=== PATIENT | male | born 1975 | race Caucasian/White ===

== ENCOUNTER 2023-02-16 09:12 | Outpatient (CLI) | payer BC, MEDICAID, SELFPAY ==
[2023-02-16 09:51] LABS: Basophils # 0.1 10^3/uL (0.0-0.1); Basophils % 0.9 %; Eosinophils # 0.3 10^3/uL (0.0-0.8); Hematocrit 43.8 % (37-53); Lymphocytes # 4.8 10^3/uL (0.8-4.8); Lymphocytes % 34.7 %; Mean Corpuscular HGB Conc 33.6 g/dL (30-55); Mean Corpuscular Hemoglobin 30.8 pg (27-33); Mean Corpuscular Volume 91.8 fl (82-101); Mean Platelet Volume 8.7 fL (7.4-10.4); Monocytes # 0.7 10^3/uL (0.2-0.9); Monocytes % 5.1 %; Neutrophils # 7.77 10^3/uL (1.8-7.7); Neutrophils % 56.8 %; Nucleated Red Blood Cells % 0 %; Platelet Count 347 10^3/cmm (157-399); Red Blood Count 4.77 10^6/uL (3.85-5.65); Red Cell Distribution Width 13.4 % (12.1-15.1); White Blood Count 13.68 10^3/uL (3.29-11.43)
[2023-02-16 09:56] LABS: Erythrocyte Sedimentation Rate 16 mm/hr (0-10)
[2023-02-16 11:03] LABS: LAB Peripheral Smear Sent for Review
== END 2023-02-16 09:13 | disposition home or self-care (01) ==
LOC: LAB 09:19
PROVIDERS: PCP Nurse Practitioner Occupational Health; Visit Provider Nurse Practitioner Occupational Health
DX: R79.9 Abnormal finding of blood chemistry, unspecified (principal)
CPT/HCPCS: 36415; 80503; 85025; 85651; 86140

== ENCOUNTER 2023-04-05 10:10 | Oncology outpatient (recurring) (ONCR) | payer BC, MEDICAID, SELFPAY ==
[2023-04-05 11:42] VITALS: BP 145/92; PULSE 87; RESP 18; TEMP 36.1; O2SAT 99
[2023-04-05 11:56] LABS: Basophils # 0.1 10^3/uL (0.0-0.1); Basophils % 0.8 %; Eosinophils # 0.1 10^3/uL (0.0-0.8); Hematocrit 45.4 % (37-53); Lymphocytes # 4.1 10^3/uL (0.8-4.8); Lymphocytes % 33.7 %; Mean Corpuscular HGB Conc 34.1 g/dL (30-55); Mean Corpuscular Hemoglobin 30.8 pg (27-33); Mean Corpuscular Volume 90.1 fl (82-101); Mean Platelet Volume 8.4 fL (7.4-10.4); Monocytes # 0.7 10^3/uL (0.2-0.9); Monocytes % 5.4 %; Neutrophils # 7.13 10^3/uL (1.8-7.7); Neutrophils % 58.8 %; Nucleated Red Blood Cells % 0 %; Platelet Count 341 10^3/cmm (157-399); Red Blood Count 5.04 10^6/uL (3.85-5.65); Red Cell Distribution Width 13.6 % (12.1-15.1); White Blood Count 12.13 10^3/uL (3.29-11.43)
[2023-04-05 12:04] LABS: Erythrocyte Sedimentation Rate 15 mm/hr (0-10); LAB Peripheral Smear Sent for Review
[2023-04-05 12:24] LABS: Alanine Aminotransferase 27 U/L (0-41); Albumin Level 4.7 g/dL (3.5-5.2); Alkaline Phosphatase 91 U/L (40-130); Anion Gap 14.8 (5-19); Aspartate Amino Transferase 19 U/L (0-40); Blood Urea Nitrogen 15 mg/dL (6-20); C Reactive Protein 3.9 mg/L (0.0-4.9); Calcium 9.4 mg/dL (8.5-10.5); Carbon Dioxide 28 mmol/L (22-29); Chloride 101 mmol/L (98-107); Globulin 3.3 g/dL (1.3-4.6); Glomerular Filtration Rate 54.6 mL/min (90-130); Glucose 90 mg/dL (65-115); Lactate Dehydrogenase 180 U/L (135-225); Osmolality Calculated 290 mOsm/kg (285-295); Potassium 3.8 mmol/L (3.5-5.1); Sodium 140 mmol/L (136-145); Total Bilirubin 0.3 mg/dL (0.15-1.2)
== END 2023-04-05 23:59 | disposition home or self-care (01) ==
PROVIDERS: PCP Nurse Practitioner Occupational Health; Visit Provider Internal Medicine Medical Oncology
DX: D72.829 Elevated white blood cell count, unspecified (principal); Z79.899 Other long term (current) drug therapy
CPT/HCPCS: 36415; 80053; 83615; 85025; 85651; 86140

== ENCOUNTER 2023-06-04 23:44 | Emergency (ER) | payer BC, MEDICAID, SELFPAY ==
[2023-06-04 23:49] VITALS: BP 139/92; PULSE 108; RESP 16; TEMP 36.6; O2SAT 93; BMI 32.8
--- NOTE | 2023-06-04 23:57 | CTR_ITS ---
PROCEDURE INFORMATION: Exam: CT Abdomen And Pelvis With Contrast Exam date and time: 06/05/2023 12:10 AM Age: 48 years old Clinical indication: Other: Tarry stool; Prior surgery; Surgery date: 6+ months; Surgery type: Gb; Additional info: Abd pain TECHNIQUE: Imaging protocol: Computed tomography of the abdomen and pelvis with contrast. Radiation optimization: All CT scans at this facility use at least one of these dose optimization techniques: automated exposure control; mA and/or kV adjustment per patient size (includes targeted exams where dose is matched to clinical indication); or iterative reconstruction. Contrast material: OMNI 350; Contrast volume: 100 ml; Contrast route: INTRAVENOUS (IV); REPORTING DATA: Count of CT and Cardiac NM exams in prior 12 months: This patient has received 0 known CTs and 0 known cardiac nuclear medicine studies in the 12 months prior to the current study. COMPARISON: No relevant prior studies available. RADIATION DOSE METRICS: Total DLP (mGy-cm): 901.41 FINDINGS: Lungs: Clear basilar lung parenchyma. Pleural spaces: No pleural fluid. Heart: Normal heart size. Liver: Normal configuration. Tiny hypoattenuating foci in the liver are too small to fully characterize but likely cysts or bile duct hamartomas. Gallbladder and bile ducts: Prior cholecystectomy. No biliary tree dilation or high-density retained stones appreciated. Pancreas: Normal. No ductal dilation. Spleen: Normal. No splenomegaly. Adrenal glands: Normal configuration. Kidneys and ureters: Kidneys demonstrate scattered low-attenuation foci which are too small to fully characterize. No evidence of renal obstruction or inflammation. Intrarenal calculus noted on the left. Stomach and bowel: Unremarkable. No obstruction. No mural thickening. Appendix: Normal appendix is confirmed. Intraperitoneal space: No free air. No significant fluid collection. Vasculature: Normal caliber abdominal aorta with mild calcific plaque. Lymph nodes: No enlarged lymph nodes. Urinary bladder: Unremarkable as visualized. Reproductive: Physiologic appearance for age. Bones/joints: No fracture or destructive lesion. Soft tissues: Unremarkable. CT/CT abdomen pelvis w con* [id number] IMPRESSION: No visible gastrointestinal mass or potential site of bleeding to explain patient's tarry stool. Underlying GI mass or other source of bleeding cannot be entirely excluded.
--- NOTE | 2023-06-04 23:57 | ED_ITS ---
HPI - GI Bleed 2 General: Chief complaint: GI Bleed Stated complaint: blood in stool Time Seen by Provider: 06/04/23 23:46 Source: patient Mode of arrival: ambulatory Limitations: no limitations History of Present Illness: 48-year-old male states that throughout the day has been having some epigastric abdominal pains been cramping states he has been having foul-smelling burps as well. Has had a history of reflux states that he takes Prilosec roughly every other day states he was passing some blood clots as well in his stools. Denies any diarrhea denies any fever. Denies any severe pain states pain is currently 4 out of 10 Associated symptoms: Reports abdominal pain; Denies chills, fever(s), headache(s), nausea, rash or vomiting Review of Systems 2 Const: Denies: fever(s), chills, body aches or change in appetite ENMT: Denies: throat pain or dental pain Card: Denies: chest pain Resp: Denies: dyspnea GI: Reports: abdominal pain and hematochezia; Denies: nausea, vomiting or diarrhea : Denies: dysuria Musc: Denies: neck pain or back pain Skin/Breast: Denies: rash Neuro: Denies: headache(s) PFSH ED 2 PFSH: Medical History Insomnia Type 2 diabetes mellitus Hyperlipidemia Hypertension Psoriasis Surgical History History of hemorrhoidectomy History of cholecystectomy Family History (Updated 04/05/23 @ 11:44 by Stefano Melo MD) Father Myocardial infarction Cancer Colon or pancreas cancer Social History Smoking and tobacco/nicotine status: current every day tobacco/nicotine user cigarettes Packs smoked per day: 0.5 Years cigarettes smoked: 28 Alcohol intake: never Substance/Drug Use: never Physical Exam 2 Const: COMMON NORMALS: no acute distress, patient oriented x3 and healthy appearing HENMT: COMMON NORMALS: normocephalic and atraumatic HEAD & SCALP: n ormocephalic and atraumatic Neck/C-Spine: COMMON NORMALS: full ROM and supple Chest: COMMONS NORMALS: normal inspection of the chest Resp: COMMON NORMALS: normal respiratory effort Cardio: COMMON NORMALS: regular rate, regular rhythm and No murmurs present (Cardio) RATE: regular rate RHYTHM: regular rhythm GI: COMMON NORMALS: Normal to inspection, nondistended, normoactive bowel sounds present, Soft to palpation, non-tender and no masses PALPATION: Yes Soft to palpation OTHER: Pale stools noted Hemoccult negative Extremity: COMMON NORMALS: normal to inspection and full ROM Neuro: COMMON NORMALS: patient oriented x3, moves all extremities and no focal motor deficits Psych: COMMON NORMALS: mental status grossly normal, Normal thought process present and cooperative THOUGHT PROCESS: Normal thought process present Skin: COMMON NORMALS: no rashes or lesions noted and no wounds GENERAL SKIN EXAM: no rashes or lesions noted Course 2 Vital Signs: Vital signs: Vital Signs Temperature 97.8 F 06/04/23 23:49 Pulse Rate 108 H 06/04/23 23:49 Respiratory Rate 16 06/04/23 23:49 Blood Pressure 139/92 06/04/23 23:49 Pulse Oximetry 93 06/04/23 23:49 Oxygen Delivery Me thod Room Air 06/04/23 23:49 MDM - GI Bleed Medical Decision Making Patient presents here with abdominal pain along with foul-smelling burps his CT scan here is negative he did complain of some lower GI bleed his hemoglobin here is normal rectal exam showed no blood at this time will start him on sulcal fate along with Protonix will get him follow-up with surgery likely needs an EGD return if worsening he understands agrees to plan Medical Records I reviewed the patient's medical records. Lab Data I reviewed the patient's lab results. 06/04/23 23:56 06/04/23 23:56 Radiology Impressions Abdomen/Pelvis CT 06/04/23 23:57 IMPRESSION: No visible gastrointestinal mass or potential site of bleeding to explain patient's tarry stool. Underlying GI mass or other source of bleeding cannot be entirely excluded. Laboratory Results WBC 17.85 10^3/uL (3.29-11.43) H 06/04/23 23:56 RBC 5.21 10^6/uL (3.85-5.65) 06/04/23 23:56 Hgb 16.00 g/dL (11.27-16.99) 06/04/23 23:56 Hct 47.1 % (37-53) 06/04/23 23:56 MCV 90.4 fl (82-101) 06/04/23 23:56 MCH 30.7 pg (27-33) 06/04/23 23:56 MCHC 34.0 g/dL (30-55) 06/04/23 23:56 RDW 13.3 % (12.1-15.1) 06/04/23 23:56 Plt Count 304 10^3/cmm (157-399) 06/04/23 23:56 MPV 8.7 fL (7.4-10.4) 06/04/23 23:56 Neut % (Auto) 63.8 % 06/04/23 23:56 Lymph % (Auto) 29.3 % 06/04/23 23:56 [place] % (Auto) 5.9 % 06/04/23 23:56 Eos % (Auto) 0.3 % 06/04/23 23:56 Baso % (Auto) 0.4 % 06/04/23 23:56 Neut # (Auto) 11.39 10^3/uL (1.8-7.7) H 06/04/23 23:56 Lymph # (Auto) 5.2 10^3/uL (0.8-4.8) H 06/04/23 23:56 [place]ami # (Auto) 1.1 10^3/uL (0.2-0.9) H 06/04/23 23:56 Eos # (Auto) 0.1 10^3/uL (0.0-0.8) 06/04/23 23:56 Baso # (Auto) 0.1 10^3/uL (0.0-0.1) 06/04/23 23:56 Nucleated RBC % (auto) 0 % 06/04/23 23:56 Nucleated RBCs # 0.0 /100WBC 06/04/23 23:56 PT 12.70 SECONDS (12.1-14.9) 06/04/23 23:56 INR 0.92 (0.8-1.2) 06/04/23 23:56 Sodium 133 mmol/L (136-145) L 06/04/23 23:56 Potassium 3.9 mmol/L (3.5-5.1) 06/04/23 23:56 Chloride 95 mmol/L (98-107) L 06/04/23 23:56 Carbon Dioxide 25 mmol/L (22-29) 06/04/23 23:56 Anion Gap 16.9 (5-19) 06/04/23 23:56 BUN 20 mg/dL (6-20) 06/04/23 23:56 Creatinine 1.4 mg/dL (0.7-1.2) H 06/04/23 23:56 GFR Calculation 54.3 mL/min (90-130) L 06/04/23 23:56 Glucose 151 mg/dL (65-115) H 06/04/23 23:56 Calculated Osmolality 282 mOsm/kg (285-295) L 06/04/23 23:56 Calcium 9.3 mg/dL (8.5-10.5) 06/04/23 23:56 Total Bilirubin 0.3 mg/dL (0.15-1.2) 06/04/23 23:56 AST 21 U/L (0-40) 06/04/23 23:56 ALT 21 U/L (0-41) 06/04/23 23:56 Alkaline Phosphatase 94 U/L (40-130) 06/04/23 23:56 Total Protein 8.0 g/dL (6.6-8.7) 06/04/23 23:56 Albumin 4.4 g/dL (3.5-5.2) 06/04/23 23:56 Globulin 3.6 g/dL (1.3-4.6) 06/04/23 23:56 All radiology interpretation(s) finalized by discharge Discharge Plan Discharge Patient Disposition: Home Clinical Impression: Abdominal pain Condition: Stable Prescriptions: New pantoprazole [Protonix] 40 mg tablet,delayed release (DR/EC) 40 mg PO DAILY Qty: 60 0RF ondansetron 4 mg tablet,disintegrating 4 mg PO Q6H PRN (Reason: nausea and vomiting) Qty: 14 0RF sucralfate 1 gram tablet 1 g PO BID 28 Days Qty: 56 0RF No Action metformin 500 mg tablet 500 mg PO BID telmisartan 80 mg tablet 80 mg PO DAILY rosuvastatin 10 mg tablet 10 mg PO DAILY hydrochlorothiazide 25 mg tablet 25 mg PO DAILY Trulicity 0.75 mg/0.5 mL pen injector SUBCUT .q7days zolpidem [Ambien] 10 mg tablet 10 mg PO BEDTIME Qty: 30 3RF Discharge Orders: Discharge ED (Routine); Ordered 06/05/23 Ordered By: Dawna Galindo Referrals: Dion Reynolds MD [Physician] - 1-3 days Andressa Blackwell FNP [Primary Care Provider] - Discharge Diet: Advance as tolerated Discharge Activity: Resume usual activity Patient Instructions: Abdominal Pain (ED) Coding Level of Care Code ED Brand Attendant for Uriel Garza
[2023-06-05] MEDS: lidocaine 2% viscous 15 ML, aluminum-mag hydrox-simethicon 30 ML, sucralfate oral liq 1 GM PO (00:05)
[2023-06-05 00:12] LABS: INR 0.92 (0.8-1.2)
[2023-06-05] MEDS: iohexol 350 mg/mL 500 mL Btl (per mL) IV (00:12)
[2023-06-05 00:16] LABS: Basophils # 0.1 10^3/uL (0.0-0.1); Basophils % 0.4 %; Eosinophils # 0.1 10^3/uL (0.0-0.8); Eosinophils % 0.3 %; Hematocrit 47.1 % (37-53); Lymphocytes # 5.2 10^3/uL (0.8-4.8); Lymphocytes % 29.3 %; Mean Corpuscular Hemoglobin 30.7 pg (27-33); Mean Corpuscular Volume 90.4 fl (82-101); Mean Platelet Volume 8.7 fL (7.4-10.4); Monocytes # 1.1 10^3/uL (0.2-0.9); Monocytes % 5.9 %; Neutrophils # 11.39 10^3/uL (1.8-7.7); Neutrophils % 63.8 %; Nucleated Red Blood Cells % 0 %; Platelet Count 304 10^3/cmm (157-399); Red Blood Count 5.21 10^6/uL (3.85-5.65); Red Cell Distribution Width 13.3 % (12.1-15.1); White Blood Count 17.85 10^3/uL (3.29-11.43)
[2023-06-05 00:17] LABS: Alanine Aminotransferase 21 U/L (0-41); Albumin Level 4.4 g/dL (3.5-5.2); Alkaline Phosphatase 94 U/L (40-130); Anion Gap 16.9 (5-19); Aspartate Amino Transferase 21 U/L (0-40); Blood Urea Nitrogen 20 mg/dL (6-20); Calcium 9.3 mg/dL (8.5-10.5); Carbon Dioxide 25 mmol/L (22-29); Chloride 95 mmol/L (98-107); Globulin 3.6 g/dL (1.3-4.6); Glomerular Filtration Rate 54.3 mL/min (90-130); Glucose 151 mg/dL (65-115); Osmolality Calculated 282 mOsm/kg (285-295); Potassium 3.9 mmol/L (3.5-5.1); Sodium 133 mmol/L (136-145); Total Bilirubin 0.3 mg/dL (0.15-1.2)
[2023-06-05 01:25] VITALS: RESP 16
[2023-06-05] MEDS: morphine 4 mg/mL SDV 1 mL IVP (01:25)
[2023-06-05] MEDS: ondansetron 2 mg/ML SDV 2 mL 4 MG IVP (01:25)
[2023-06-05 01:28] VITALS: BP 126/91; PULSE 98; RESP 16; O2SAT 95
[2023-06-05 01:47] VITALS: PULSE 80; RESP 16; O2SAT 95
--- NOTE | 2023-06-06 07:15 | DCPLANNER ---
Message was sent to general surgery on 06/06 at 0715. Clinic to contact patient
== END 2023-06-05 01:48 | disposition home or self-care (01) ==
PROVIDERS: Emergency Provider Emergency Medicine; PCP Nurse Practitioner Occupational Health
DX: R10.13 Epigastric pain (principal); Z79.85 Long-term (current) use of injectable non-insulin antidiabetic drugs; Z79.84 Long term (current) use of oral hypoglycemic drugs; E11.9 Type 2 diabetes mellitus without complications; E78.5 Hyperlipidemia, unspecified; I10 Essential (primary) hypertension; F17.210 Nicotine dependence, cigarettes, uncomplicated
CPT/HCPCS: 74177; 80053; 85025; 85610; 96374; 96375; 99285; J2270; J2405; Q9967

== ENCOUNTER 2023-06-14 12:11 | Oncology outpatient (recurring) (ONCR) | payer BC, MEDICAID, SELFPAY ==
[2023-06-14 13:35] LABS: Basophils # 0.2 10^3/uL (0.0-0.1); Basophils % 0.9 %; Eosinophils # 0.3 10^3/uL (0.0-0.8); Eosinophils % 1.9 %; Hematocrit 46.5 % (37-53); Lymphocytes % 23.5 %; Mean Corpuscular HGB Conc 34.2 g/dL (30-55); Mean Corpuscular Hemoglobin 30.5 pg (27-33); Mean Corpuscular Volume 89.1 fl (82-101); Mean Platelet Volume 8.3 fL (7.4-10.4); Monocytes # 0.8 10^3/uL (0.2-0.9); Monocytes % 4.5 %; Neutrophils # 11.66 10^3/uL (1.8-7.7); Neutrophils % 68.8 %; Nucleated Red Blood Cells % 0 %; Platelet Count 365 10^3/cmm (157-399); Red Blood Count 5.22 10^6/uL (3.85-5.65); Red Cell Distribution Width 13.3 % (12.1-15.1); White Blood Count 16.97 10^3/uL (3.29-11.43)
[2023-06-14 13:50] LABS: Alanine Aminotransferase 22 U/L (0-41); Albumin Level 4.5 g/dL (3.5-5.2); Alkaline Phosphatase 108 U/L (40-130); Anion Gap 15.7 (5-19); Aspartate Amino Transferase 24 U/L (0-40); Blood Urea Nitrogen 14 mg/dL (6-20); Carbon Dioxide 26 mmol/L (22-29); Chloride 100 mmol/L (98-107); Globulin 3.4 g/dL (1.3-4.6); Glomerular Filtration Rate 59.2 mL/min (90-130); Glucose 114 mg/dL (65-115); Lactate Dehydrogenase 166 U/L (135-225); Osmolality Calculated 287 mOsm/kg (285-295); Potassium 3.7 mmol/L (3.5-5.1); Sodium 138 mmol/L (136-145); Total Bilirubin 0.3 mg/dL (0.15-1.2); Total Protein 7.9 g/dL (6.6-8.7)
[2023-06-14 14:16] LABS: LAB Peripheral Smear Sent for Review
[2023-06-15 12:48] LABS: Leukemia Profile (BBPL) See Report; Lymphoma Profile (BBPL) See Report
== END 2023-07-06 23:59 | disposition home or self-care (01) ==
PROVIDERS: PCP Nurse Practitioner Occupational Health; Visit Provider Internal Medicine Medical Oncology
DX: D72.829 Elevated white blood cell count, unspecified (principal); Z79.899 Other long term (current) drug therapy; Z53.9 Procedure and treatment not carried out, unspecified reason
CPT/HCPCS: 36415; 80053; 83615; 85025; 88184; 88185; 88374

== ENCOUNTER 2023-07-01 08:09 | Day surgery (SDC) | payer BC, MEDICAID, SELFPAY ==
[2023-07-01 08:44] VITALS: BP 125/93; PULSE 95; RESP 18; TEMP 36.4; O2SAT 98; BMI 33.8
[2023-07-01] MEDS: sodium chloride 0.9% 1,000 ML 30 ML IV (08:54)
[2023-07-01 09:00] LABS: Glucose Point of Care 127 mg/dL (70-110)
--- NOTE | 2023-07-01 10:11 | P.ANESASSM_ITS ---
Pre-Anesthetic Assessment Height/Weight: Height 1.7 m Weight 97.976 kg Temp Pulse Resp BP Pulse Ox O2 Del Method 97.5 F L 95 18 125/93 98 Room Air 07/01/23 08:44 07/01/23 08:44 07/01/23 08:44 07/01/23 08:44 07/01/23 08:44 07/01/23 08:44 Preop Diagnosis: GERD/ screening Operation Date: 07/01/23 09:30 Proposed Procedures p 29295 egd [id number] colonoscopy G0121 Screen colon a risk R10.9, K92.1(Not Applicable) - Kalia Moya DO s Colonoscopy(Not Applicable) - Kalia Moya DO Familial anesthetic complications: None Was Beta Brenden taken within 24 hours: N/A Was Clonidine taken within 24 hours: N/A Last intake: Intake Last Liquid Date 06/30/23 Last Liquid Time 19:30 Last Solid Date 06/29/23 Last Solid Time 18:00 Social Tobacco and No alcohol 5-6 ciggs/day pack(s) per day 30 pack years Exam alert, oriented x 3, clear to auscultation bilaterally and regular rate & rhythm Airway Submandibular: within normal limits Cervical ROM: within normal limits Mallampati: Class II Dentition: full Comments: Comments: Several missing History/ROS No significant history except as noted and No significant complaints Pulmonary Sleep Apnea CV/HEM Hypertension None reported Hepatic None reported GI Gastroesophageal Reflux Disease Metabolic Diabetes Mellitus, Hyperlipidemia and Morbid Obesity [facility] None reported Neuropsych None reported Anesthetic Plan ASA status: 2 Anesthesia: Anesthesia Evaluation, General and MAC Risk of > 500 ml blood loss (7ml/kg in children): No Medications/Allergies Home Medications Medication Instructions Recorded Confirmed Last Taken Type dulaglutide 0.75 mg/0.5 mL 0.75 mg SUBCUT .q7days 04/05/23 07/01/23 06/22/23 History subcutaneous pen injector (Trulicity) hydrochlorothiazide 25 mg tablet 25 mg PO DAILY 04/05/23 07/01/23 06/30/23 History metformin 500 mg tablet 500 mg PO BID 04/05/23 07/01/23 06/30/23 History rosuvastatin 10 mg tablet 10 mg PO DAILY 04/05/23 07/01/23 06/30/23 History telmisartan 80 mg tablet 80 mg PO DAILY 04/05/23 07/01/23 06/30/23 History zolpidem 10 mg tablet (Ambien) 10 mg PO BEDTIME #30 tabs 04/05/23 07/01/23 06/29/23 Rx ondansetron 4 mg disintegrating 4 mg PO Q6H PRN nausea and 06/05/23 07/01/23 06/29/23 Rx tablet vomiting #14 tabs pantoprazole 40 mg tablet,delayed 40 mg PO DAILY #60 tabs 06/05/23 07/01/23 06/30/23 Rx release (Protonix) sucralfate 1 gram tablet 1 g PO BID 4 weeks #56 tabs 06/05/23 07/01/23 06/30/23 Rx Allergies Allergy/AdvReac Type Severity Reaction Status Date / Time No Known Allergies Allergy Verified 06/29/23 13:29 Current Medications Generic Name Dose Route Start Last Admin Trade Name Freq PRN Reason Stop Dose Admin Sodium Chloride 1,000 mls @ 30 mls/hr 07/01/23 08:45 07/01/23 08:54 Sodium Chloride 0.9% IV 07/02/23 08:44 30 mls/hr .Q24H ROMAN Administration PFSH Anesthesia Medical History Insomnia Type 2 diabetes mellitus Hyperlipidemia Hypertension Psoriasis Surgical History History of hemorrhoidectomy History of cholecystectomy Family History Father Myocardial infarction Cancer Colon or pancreas cancer Social History Smoking and tobacco/nicotine status: current every day tobacco/nicotine user cigarettes Packs smoked per day: 0.5 Years cigarettes smoked: 28 Alcohol intake: never Substance/Drug Use: never Data Anesthesia Cardiac Studies: No Data to Display
--- NOTE | 2023-07-01 10:38 | W.PM.OPSUD ---
Surgery/Procedure H&P Update DATE OF PROCEDURE: July 01, 2023 DATE H&P PERFORMED: 06/07/23 H&P UPDATE INFORMATION: I have reviewed H&P completed within last 30 days, I have examined patient prior to procedure and No changes to prior documentation PREOP DIAGNOSIS: GERD/ screening PLANNED PROCEDURE: Operation Date: 07/01/23 09:30 Proposed Procedures p [id number] egd [id number] colonoscopy G0121 Screen colon a risk R10.9, K92.1(Not Applicable) - DO agustina Coker Colonoscopy(Not Applicable) - Kalia Moya DO
[2023-07-01 11:29] VITALS: BP 94/67; PULSE 86; RESP 12; TEMP 36.1; O2SAT 92
[2023-07-01 11:45] VITALS: BP 108/69; PULSE 80; RESP 16; O2SAT 98
--- NOTE | 2023-07-01 13:10 | ANE.PACU2 ---
Inpatient post-anesthesia follow up: Airway intact: Yes Vital signs: Temperature 97.0 F Pulse Rate 80 Respiratory Rate 16 Blood Pressure 108/69 Pulse Oximetry 98 Oxygen Delivery Me thod Nasal Cannula Oxygen Flow Rate 2 Fraction of Inspir ed Oxygen Hydration adequate: Yes Nausea and vomiting: No Pain level: 2 Mental status: Baseline
== END 2023-07-01 12:21 | disposition home or self-care (01) ==
PROVIDERS: PCP Nurse Practitioner Occupational Health; Visit Provider Surgery
PROC: 0DJ08ZZ Inspection of Upper Intestinal Tract, Via Natural or Artificial Opening Endoscopic (ICD-10-PCS; CPT 43235; principal; 2023-07-01 09:30)
PROC: 0DJD8ZZ Inspection of Lower Intestinal Tract, Via Natural or Artificial Opening Endoscopic (ICD-10-PCS; CPT 45378; 2023-07-01 09:30)
DX: Z12.11 Encounter for screening for malignant neoplasm of colon (principal); K21.9 Gastro-esophageal reflux disease without esophagitis; D12.3 Benign neoplasm of transverse colon; K29.50 Unspecified chronic gastritis without bleeding; D12.8 Benign neoplasm of rectum; K64.8 Other hemorrhoids; K20.90 Esophagitis, unspecified without bleeding; K29.70 Gastritis, unspecified, without bleeding; F17.210 Nicotine dependence, cigarettes, uncomplicated; G47.30 Sleep apnea, unspecified; I10 Essential (primary) hypertension; E11.9 Type 2 diabetes mellitus without complications; E78.5 Hyperlipidemia, unspecified; E66.01 Morbid (severe) obesity due to excess calories; Z68.26 Body mass index [BMI] 26.0-26.9, adult
CPT/HCPCS: 36416; 43239; 45382; 45385; 82962; 88305; J2704; J7030

== ENCOUNTER 2023-10-17 10:45 | Outpatient (CLI) | payer BC, MEDICAID, SELFPAY ==
[2023-10-17 10:52] VITALS: BMI 33.6
--- NOTE | 2023-10-17 10:54 | ECG_ITS ---
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 Interpretive Statements NAME OF STUDY: TREADMILL STRESS TEST INDICATION: [Palpitations] EXERCISE DATA: The patient was exercised by Jacky protocol. Baseline heart rate was 77 beats per minute. Baseline blood pressure was 126/89 millimeters of mercury. Maximal predicted heart rate was 173 beats per minute. Maximum heart rate achieved was 163, which was 94% of the maximum predicted heart rate. Maximum blood pressure was 134/80 millimeters of mercury. Total exercise time was 9 minutes 42 seconds. Maximum METs achieved was 13.5. The reason for ending the test was completion of protocol. The patient complained of shortness of breath during the stress test, which then resolved at the end of the test. ELECTROCARDIOGRAM: BASELINE: Showed sinus rhythm, normal axis, no significant ST-T changes at the baseline noted. [] EXERCISE: At the peak exercise level, [] No significant ST-T changes suggestive of ischemia noted. [] RECOVERY: During the recovery period, heart rate dropped appropriately. No significant ST-T changes in the recovery suggestive of ischemia noted. [] CONCLUSION: 1. Exercise capacity is excellent. 2. Heart rate response was appropriate 3. Blood pressure response was appropriate. 4. Symptoms not suggestive of ischemia. 5. Stress test not indicative of ischemia Electronically Signed On 10-25-2023 10:27:46 CDT by Ki Hayden M.D. [id number]
[2023-10-17 12:35] VITALS: BP 116/67; PULSE 103
== END 2023-10-17 10:46 | disposition home or self-care (01) ==
LOC: CDL 10:46
PROVIDERS: PCP Nurse Practitioner Occupational Health; Visit Provider Nurse Practitioner Occupational Health
DX: R07.9 Chest pain, unspecified (principal); R06.02 Shortness of breath
CPT/HCPCS: 93017

== ENCOUNTER 2023-11-27 22:30 | Emergency (ER) | payer BC, MEDICAID, SELFPAY ==
[2023-11-27 22:31] VITALS: BP 116/76; PULSE 107; RESP 10; O2SAT 97
--- NOTE | 2023-11-27 22:38 | CTR_ITS ---
PROCEDURE INFORMATION: Exam: CTA Head With Contrast, Arteriography Exam date and time: 11/27/2023 10:49 PM Age: 48 years old Clinical indication: Stroke-like symptoms; Altered mental status/memory loss and speech disturbance TECHNIQUE: Imaging protocol: Computed tomographic angiography of the head with contrast. Exam focused on the arteries. 3D rendering (Not supervised by radiologist): MIP and/or 3D reconstructed images were created by the technologist. Radiation optimization: All CT scans at this facility use at least one of these dose optimization techniques: automated exposure control; mA and/or kV adjustment per patient size (includes targeted exams where dose is matched to clinical indication); or iterative reconstruction. Contrast material: OMNI 350; Contrast volume: 100 ml; Contrast route: INTRAVENOUS (IV); COMPARISON: CT head wo con* [id number] 11/27/2023 10:45 PM RADIATION DOSE METRICS: Total DLP (mGy-cm): 512.55 FINDINGS: ANTERIOR CIRCULATION: Right internal carotid artery: Intracranial segment is patent with no significant stenosis. No aneurysm. Right middle cerebral artery: No occlusion or significant stenosis. No aneurysm. Right anterior cerebral artery: No occlusion or significant stenosis. No aneurysm. Left internal carotid artery: Intracranial segment is patent with no significant stenosis. No aneurysm. Left middle cerebral artery: No occlusion or significant stenosis. No aneurysm. Left anterior cerebral artery: No occlusion or significant stenosis. No aneurysm. POSTERIOR CIRCULATION: Right vertebral artery: No occlusion or significant stenosis. No aneurysm. Left vertebral artery: No occlusion or significant stenosis. No aneurysm. Basilar artery: No occlusion or significant stenosis. No aneurysm. Right posterior cerebral artery: No occlusion or significant stenosis. No aneurysm. Left posterior cerebral artery: No occlusion or significant stenosis. No aneurysm. Brain: No definite mass, mass effect, or midline shift. Cerebral ventricles: No ventriculomegaly. Bones/joints: Unremarkable. No acute fracture. Soft tissues: Unremarkable. PROCEDURE INFORMATION: Exam: CTA Neck With Contrast Exam date and time: 11/27/2023 10:49 PM Age: 48 years old Clinical indication: Stroke-like symptoms; Altered mental status/memory loss and speech disturbance TECHNIQUE: Imaging protocol: Computed tomographic angiography of the neck with contrast. Exam focused on the cervical segments of the vasculature. 3D rendering (Not supervised by radiologist): MIP and/or 3D reconstructed images were created by the technologist. Radiation optimization: All CT scans at this facility use at least one of these dose optimization techniques: automated exposure control; mA and/or kV adjustment per patient size (includes targeted exams where dose is matched to clinical indication); or iterative reconstruction. Contrast material: OMNI 350; Contrast volume: 100 ml; Contrast route: INTRAVENOUS (IV); COMPARISON: CT head wo con* [id number] 11/27/2023 10:45 PM RADIATION DOSE METRICS: Total DLP (mGy-cm): 512.55 FINDINGS: Right common carotid artery: No stenosis. No dissection or occlusion. Right internal carotid artery: No stenosis of the extracranial segment. No dissection or occlusion. Right external carotid artery: No occlusion or stenosis of the origin. Left common carotid artery: No stenosis. No dissection or occlusion. Left internal carotid artery: No stenosis of the extracranial segment. No dissection or occlusion. Left external carotid artery: No occlusion or stenosis of the origin. Right vertebral artery: No stenosis. No dissection or occlusion. Left vertebral artery: No stenosis. No dissection or occlusion. Soft tissues: Normal. No significant soft tissue swelling. Bones/joints: No acute fracture. CT/CT angio headneck* [id number] IMPRESSION: No large vessel stenosis or occlusion. IMPRESSION: No stenosis or occlusion. REFERENCES: NASCET CRITERIA. The degree of stenosis in the cervical segment of the internal carotid artery is based on NASCET criteria. Normal is no stenosis. Mild is less than 50% stenosis. Moderate is 50-69% stenosis. Severe is 70% to 99% stenosis. Total occlusion is no detectable patent lumen.
--- NOTE | 2023-11-27 22:40 | CTR_ITS ---
PROCEDURE INFORMATION: Exam: CT Head Without Contrast Exam date and time: 11/27/2023 10:45 PM Age: 48 years old Clinical indication: Stroke-like symptoms; Altered mental status/memory loss and speech disturbance; Additional info: EMS arrival for AMS. Patient aphasic and responsive to painful stimulus only with oral secretions. TECHNIQUE: Imaging protocol: Computed tomography of the head without contrast. Radiation optimization: All CT scans at this facility use at least one of these dose optimization techniques: automated exposure control; mA and/or kV adjustment per patient size (includes targeted exams where dose is matched to clinical indication); or iterative reconstruction. Other technique: STROKE PROTOCOL was implemented. COMPARISON: No relevant prior studies available. RADIATION DOSE METRICS: Total DLP (mGy-cm): 1096.58 FINDINGS: Brain: Normal. No hemorrhage. Unremarkable white matter. No mass effect. Cerebral ventricles: No ventriculomegaly. Paranasal sinuses: Visualized sinuses are unremarkable. No fluid levels. Mastoid air cells: Visualized mastoid air cells are well aerated. Bones: Unremarkable. No acute fracture. Soft tissues: Unremarkable. CT/CT head wo con* [id number] IMPRESSION: No acute intracranial abnormality. ASSESSMENT: ASPECTS ([place] Stroke Program Early CT Score) is 10.
--- NOTE | 2023-11-27 22:41 | ECG_ITS ---
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 Measurements Intervals [place] Rate: 98 P: 25 OR: 150 QRS: 128 QRSD: 97 T: 31 QT: 336 QTc: 430 Interpretive Statements SINUS RHYTHM INDETERMINATE AXIS PATTERN CONSISTENT WITH PULMONARY DISEASE INFERIOR MYOCARDIAL INFARCTION , PROBABLY OLD [40+ ms Q WAVE AND/OR ST/T ABNORMALITY IN II/aVF] No previous ECG available for comparison Electronically Signed On 11-28-2023 14:46:30 CDT by Alcon Mandujano M.D. [id number]
--- NOTE | 2023-11-27 22:52 | ED_ITS ---
HPI - Neuro Symptoms/Deficit 2 General: Chief Complaint: Altered Mental Status Stated Complaint: AMS Time Seen by Provider: 11/27/23 22:35 History of Present Illness: 48-year-old male with a history of diabe amado. He presents with evidently a sudden onset of symmetric weakness, expressive aphasia around 2044 this evening. EMS was called. Had a long transport time here. On arrival, the patient will follow most commands, but cannot answer questions. He has vomited twice, has been suctioned, and given Zofran and route. Other history not available. Blood sugar was normal per EMS report. Review of Systems 2 General: Reports: ROS unobtainable due to medical condition Const: Reports: fever(s) PFSH ED 2 PFSH: Medical History Insomnia Type 2 diabetes mellitus Hyperlipidemia Hypertension Psoriasis Surgical History History of hemorrhoidectomy History of cholecystectomy Family History Father Myocardial infarction Cancer Colon or pancreas cancer Social History Smoking and tobacco/nicotine status: current every day tobacco/nicotine user cigarettes Packs smoked per day: 0.5 Years cigarettes smoked: 28 Alcohol intake: never Substance/Drug Use: never NIH stroke score 2 NIHSS: Level Of Consciousness - 1a: 3 Level Of Consciousness Questions - 1b: Neither Correct Level Of Consciousness Commands - 1c: Both Correct B est Gaze - 2: Normal Visual Escobar - 3: No Visual Loss Facial Palsy - 4: N ormal Motor Arm Right - 5: Effort Against [place] Motor Arm Left - 5: E ffort Against [place] Motor Leg Right - 6: Effort Against [place] Motor Leg Left - 6: Effort Against [place] Limb Ataxia - 7: Present In Two Limbs Sensory - 8: Normal Best Language - 9: Severe Aphasia Dysarthia - 10: S evere Dysarthia Extinction And Inattention - 11: 0 Score: Total Score: 19 Physical Exam 2 Const: EXAM LIMITATIONS: altered mental status GENERAL APPEARANCE: c ooperative, in distress, lethargic and ill appearing O RIENTATION/CONSCIOUSNESS: Yes lethargic HENMT: COMMON NORMALS: normocephalic, atraumatic and Normal external nose present HEAD & SCALP: normocephalic and atraumatic FACE & SINUS: normal facial exam and face symmetric NOSE: Normal external nose present and Normal nares present Eye: COMMON NORMALS: Equal, round and reactive pupils present and EOMs intact bilaterally PUPIL: Yes Equal, round and reactive pupils present Neck/C-Spine: GENERAL: Yes trachea midline Chest: CHEST: Yes Symmetrical chest wall rise Resp: COMMON NORMALS: normal respiratory effort, No use of accessory muscles and clear to auscultation bilaterally AUSCULTATION: clear to auscultation bilaterally Cardio: COMMON NORMALS: regular rhythm and Peripheral pulses 2+ throughout RATE: tachycardic RHYTHM: regular rhythm PERIPHERAL PULSES: Peripheral pulses 2+ throughout GI: COMMON NORMALS: Soft to palpation PALPATION: Yes Soft to palpation Neuro: MITZY COMA SCALE: document GCS findings [place] coma scale eye opening: Spontaneous Mitzy coma scale verbal response: Sounds [place] coma scale motor response: Obey commands Mitzy coma scale total score: 12 S ENSORIUM/ORIENTATION: Yes lethargic SPEECH: abnormal speech Course 2 Vital Signs: Vital signs: Vital Signs Temperature 97.9 F 11/27/23 23:56 Pulse Rate 79 11/28/23 03:07 Respiratory Rate 18 11/28/23 03:07 Blood Pressure 110/94 11/28/23 03:07 Pulse Oximetry 92 11/28/23 02:33 Oxygen Delivery Me thod Room Air 11/28/23 02:33 MDM - Neuro Symptoms/Deficit Medical Decision Making 2259: Dr. Davison from [facility] neurology to call back regarding potential stroke. 2301: Re-examination. No change in symptoms. 2310: Spoke with neurology. There is no definite vascular territory that would contribute to his symptoms/exam unless potential basilar occlusion which should be seen on CTA. Non con CT negative. Wants to look at CTA images. they are in the cloud to him. 2329: Dr. Davison returned call. No occlusion in basilar area to account for potential symptoms. Doesn not recommend thrombolytics at this time. 0113: Patient has become more responsive. He is now talking. He is moving all extremities. He is reaching purposefully. He does not know why he was brought here, and does not remember the trip here. He is asking for ice chips at this point. He is conversing and joking with family. Suspect seizure with postictal episode in this patient. Official CTA report is negative. White blood cell count is 17. Potassium is 3. Bicarbonate is 21. The patient is hydrated. He is given IV potassium. The patient does not have a history of seizure disorder. On questioning the family, the patient had evidently had several episodes of vomiting with upset stomach earlier in the evening. Likely the source of decreased bicarbonate decreased potassium levels. Patient essentially returned to baseline. He has been walking in the ER. He was given the option of observation, but wishes to go home. He was given red flag symptoms for return such as continued diarrhea, repeated episodes of syncope or passing out, convulsions, mental status changes, etc. for return. He was told to have his potassium checked on Tuesday. Lab Data 11/27/23 23:07 11/27/23 23:07 Radiology Impressions Head/Neck CTA 11/27/23 22:38 IMPRESSION: No large vessel stenosis or occlusion. IMPRESSION: No stenosis or occlusion. REFERENCES: NASCET CRITERIA. The degree of stenosis in the cervical segment of the internal carotid artery is based on NASCET criteria. Normal is no stenosis. Mild is less than 50% stenosis. Moderate is 50-69% stenosis. Severe is 70% to 99% stenosis. Total occlusion is no detectable patent lumen. Head CT 11/27/23 22:40 IMPRESSION: No acute intracranial abnormality. ASSESSMENT: ASPECTS ([place] Stroke Program Early CT Score) is 10. Laboratory Results WBC 17.31 10^3/uL (3.29-11.43) H 11/27/23 23:07 RBC 4.93 10^6/uL (3.85-5.65) 11/27/23 23:07 Hgb 14.80 g/dL (11.27-16.99) 11/27/23 23:07 Hct 43.3 % (37-53) 11/27/23 23:07 MCV 87.8 fl (82-101) 11/27/23 23:07 MCH 30.0 pg (27-33) 11/27/23 23:07 MCHC 34.2 g/dL (30-55) 11/27/23 23:07 RDW 13.4 % (12.1-15.1) 11/27/23 23:07 Plt Count 295 10^3/cmm (157-399) 11/27/23 23:07 MPV 8.5 fL (7.4-10.4) 11/27/23 23:07 Neut % (Auto) 83.2 % 11/27/23 23:07 Lymph % (Auto) 10.6 % 11/27/23 23:07 [place] % (Auto) 5.0 % 11/27/23 23:07 Eos % (Auto) 0.6 % 11/27/23 23:07 Baso % (Auto) 0.2 % 11/27/23 23:07 Neut # (Auto) 14.41 10^3/uL (1.8-7.7) H 11/27/23 23:07 Lymph # (Auto) 1.8 10^3/uL (0.8-4.8) 11/27/23 23:07 [place] # (Auto) 0.9 10^3/uL (0.2-0.9) 11/27/23 23:07 Eos # (Auto) 0.1 10^3/uL (0.0-0.8) 11/27/23 23:07 Baso # (Auto) 0.0 10^3/uL (0.0-0.1) 11/27/23 23:07 Nucleated RBC % (auto) 0 % 11/27/23 23:07 Nucleated RBCs # 0.0 /100WBC 11/27/23 23:07 ESR 21 mm/hr (0-10) H 11/28/23 00:01 PT 13.10 SECONDS (12.1-14.9) 11/27/23 23:07 INR 0.96 (0.8-1.2) 11/27/23 23:07 APTT 26.4 SECONDS (23.9-36.7) 11/27/23 23:07 Specimen Type Arterial 11/27/23 22:57 Sample Site Radial, right 11/27/23 22:57 ABG pH 7.41 (7.35-7.45) 11/27/23 22:57 ABG pCO2 35.5 mmHg (35-45) 11/27/23 22:57 ABG pO2 81.0 mmHg (80.0-100.0) 11/27/23 22:57 ABG HCO3 22.2 mmol/L (22-26) 11/27/23 22:57 ABG Base Excess -2.0 mmol/L (-2.0-2.0) 11/27/23 22:57 Leandro Test Pos 11/27/23 22:57 Hematocrit 45.7 % (42-52) 11/27/23 22:57 O2 Delivery Device Nc 11/27/23 22:57 O2 Liters/Min 2.0 % 11/27/23 22:57 Fellmongering Machine Operator ID [email or web address] 11/27/23 22:57 Sodium 134 mmol/L (136-145) L 11/27/23 23:07 Potassium 3.0 mmol/L (3.5-5.1) L 11/27/23 23:07 Chloride 99 mmol/L (98-107) 11/27/23 23:07 Carbon Dioxide 21 mmol/L (22-29) L 11/27/23 23:07 Anion Gap 17.0 (5-19) 11/27/23 23:07 BUN 23 mg/dL (6-20) H 11/27/23 23:07 Creatinine 1.1 mg/dL (0.7-1.2) 11/27/23 23:07 GFR Calculation 71.8 mL/min (90-130) L 11/27/23 23:07 Glucose 175 mg/dL (65-115) H 11/27/23 23:07 Calculated Osmolality 286 mOsm/kg (285-295) 11/27/23 23:07 Lactic Acid 1.6 mmol/L (0.5-2.2) 11/27/23 23:07 Calcium 8.6 mg/dL (8.5-10.5) 11/27/23 23:07 Total Bilirubin 0.3 mg/dL (0.15-1.2) 11/27/23 23:07 AST 13 U/L (0-40) 11/27/23 23:07 ALT 15 U/L (0-41) 11/27/23 23:07 Alkaline Phosphatase 89 U/L (40-130) 11/27/23 23:07 Ammonia 29 umol/L (16-60) 11/27/23 23:07 Creatine Kinase 108 U/L (39-308) 11/27/23 23:07 Troponin T Baseline < 6 ng/L (0-15) 11/27/23 23:07 Troponin T 120 Minute 6.00 ng/L (0-15) 11/28/23 01:23 Delta Troponin T 0.36246 ABS# (0-10) 11/28/23 01:23 C-Reactive Protein 6.4 mg/L (0.0-4.9) H 11/27/23 23:07 Total Protein 6.8 g/dL (6.6-8.7) 11/27/23 23:07 Albumin 3.9 g/dL (3.5-5.2) 11/27/23 23:07 Globulin 2.9 g/dL (1.3-4.6) 11/27/23 23:07 Urine Color Yellow (Yellow) 11/27/23 23:15 Urine Appearance Clear (CLEAR) 11/27/23 23:15 Urine pH 5 (5-7) 11/27/23 23:15 Ur Specific [place] 1.010 (1.005-1.030) 11/27/23 23:15 Urine Protein 1+ (Negative) H 11/27/23 23:15 Urine Glucose (UA) Norm (Normal) 11/27/23 23:15 Urine Ketones 1+ (Negative) H 11/27/23 23:15 Urine Blood Neg (Negative) 11/27/23 23:15 Urine Nitrate Negative (Negative) 11/27/23 23:15 Urine Bilirubin Neg (Negative) 11/27/23 23:15 Urine Urobilinogen 1 mg/dL (Negative) H 11/27/23 23:15 Ur Leukocyte Esterase Negative (Negative) 11/27/23 23:15 Urine RBC 0-4 /hpf (0-2) H 11/27/23 23:15 Urine WBC 0-4 /hpf (0-5) H 11/27/23 23:15 Ur Squamous Epith Cells 0-4 /hpf (0-5) H 11/27/23 23:15 Amorphous Sediment Not Reportable 11/27/23 23:15 Urine Bacteria 1+ /hpf (NONE) H 11/27/23 23:15 Urine Opiates Screen Negative ng/mL (Negative) 11/27/23 23:15 Ur Barbiturates Screen Negative ng/mL (Negative) 11/27/23 23:15 Ur Phencyclidine Scrn Negative ng/mL (Negative) 11/27/23 23:15 Ur Amphetamines Screen Negative ng/mL (Negative) 11/27/23 23:15 U Benzodiazepines Scrn Negative ng/mL (Negative) 11/27/23 23:15 Urine Cocaine Screen Negative ng/mL (Negative) 11/27/23 23:15 U Marijuana (THC) Screen Negative ng/mL (Negative) 11/27/23 23:15 Ethyl Alcohol < 10 mg/dL (0-10) 11/27/23 23:07 All radiology interpretation(s) finalized by discharge Discharge Plan Discharge Patient Disposition: Home Clinical Impression: Altered mental status, Seizure, Acute hypokalemia Condition: Stable Prescriptions: No Action metformin 500 mg tablet 500 mg PO BID telmisartan 80 mg tablet 80 mg PO DAILY rosuvastatin 10 mg tablet 10 mg PO DAILY hydrochlorothiazide 25 mg tablet 25 mg PO DAILY Trulicity 0.75 mg/0.5 mL pen injector 0.75 mg SUBCUT .q7days zolpidem [Ambien] 10 mg tablet 10 mg PO BEDTIME Qty: 30 3RF Protonix 40 mg tablet,delayed release (DR/EC) 40 mg PO BID 42 Days Qty: 84 1RF ondansetron 4 mg tablet,disintegrating 4 mg PO Q6H PRN (Reason: nausea and vomiting) Qty: 14 0RF rosuvastatin 10 mg tablet 10 mg PO DAILY trazodone 50 mg tablet 50 mg PO DAILY hydrochlorothiazide 25 mg tablet 25 mg PO DAILY hydroxyzine HCl 25 mg tablet 25 mg PO DAILY telmisartan 80 mg Tablet 80 mg PO DAILY metformin 500 mg tablet 500 mg PO BID Discharge Orders: Discharge ED (Routine); Ordered 11/28/23 Ordered By: Ryder Grossman Referrals: Andressa Blackwell FNP [Primary Care Provider] - 1-3 days Patient Instructions: Hypokalemia (ED), Altered Mental Status (ED), New-Onset Seizure in Adults (ED), Opioid Safety, Pain Management Activity Restrictions/Additional Instructions: Return immediately for repeated episodes of passing out or seizure activity, changes in mental status, weakness, language problems, etc. Return also for continued vomiting and diarrhea. See your doctor on Tuesday. You should have your potassium redrawn at that point to make sure it is staying up. Coding Level of Care Code ED Chicken Sexer for Uriel Garza
[2023-11-27] MEDS: naloxone 0.4 mg/ml SDV 1 MG IVP (23:01)
[2023-11-27] MEDS: sodium chloride 0.9% 1,000 ML 999 ML IV (23:06)
[2023-11-27 23:08] LABS: ABG PCO2 35.5 mmHg (35-45); ABG PH Result 7.41 (7.35-7.45); Arterial Blood Gas Hematocrit 45.7 % (42-52); Blood Gas Allen Test Pos; Blood Gas Sample Site Radial, right; Blood Gas Sample Type Arterial; HCO3 ABG 22.2 mmol/L (22-26); Oxygen Device NC
[2023-11-27 23:11] LABS: Basophils % 0.2 %; Eosinophils # 0.1 10^3/uL (0.0-0.8); Eosinophils % 0.6 %; Hematocrit 43.3 % (37-53); Lymphocytes # 1.8 10^3/uL (0.8-4.8); Lymphocytes % 10.6 %; Mean Corpuscular HGB Conc 34.2 g/dL (30-55); Mean Corpuscular Volume 87.8 fl (82-101); Mean Platelet Volume 8.5 fL (7.4-10.4); Monocytes # 0.9 10^3/uL (0.2-0.9); Neutrophils # 14.41 10^3/uL (1.8-7.7); Neutrophils % 83.2 %; Nucleated Red Blood Cells % 0 %; Platelet Count 295 10^3/cmm (157-399); Red Blood Count 4.93 10^6/uL (3.85-5.65); Red Cell Distribution Width 13.4 % (12.1-15.1); White Blood Count 17.31 10^3/uL (3.29-11.43)
[2023-11-27 23:30] LABS: Alanine Aminotransferase 15 U/L (0-41); Albumin Level 3.9 g/dL (3.5-5.2); Alkaline Phosphatase 89 U/L (40-130); Ammonia 29 umol/L (16-60); Aspartate Amino Transferase 13 U/L (0-40); Blood Urea Nitrogen 23 mg/dL (6-20); Calcium 8.6 mg/dL (8.5-10.5); Carbon Dioxide 21 mmol/L (22-29); Chloride 99 mmol/L (98-107); Globulin 2.9 g/dL (1.3-4.6); Glomerular Filtration Rate 71.8 mL/min (90-130); Glucose 175 mg/dL (65-115); Osmolality Calculated 286 mOsm/kg (285-295); Sodium 134 mmol/L (136-145); Total Bilirubin 0.3 mg/dL (0.15-1.2); Total Protein 6.8 g/dL (6.6-8.7)
[2023-11-27 23:31] VITALS: BP 123/88; BP 149/86; PULSE 93; RESP 18; O2SAT 99
[2023-11-27 23:36] LABS: Alcohol Level < 10 mg/dL (0-10)
--- NOTE | 2023-11-27 23:42 | ECG_ITS ---
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 Measurements Intervals [place] Rate: 88 P: 51 [place]: 158 QRS: 120 QRSD: 107 T: 43 QT: 374 QTc: 454 Interpretive Statements SINUS RHYTHM INDETERMINATE AXIS PATTERN CONSISTENT WITH PULMONARY DISEASE INCOMPLETE RIGHT BUNDLE BRANCH BLOCK [90+ ms QRS DURATION, TERMINAL R IN V1/V2, 40+ ms S IN I/aVL/V4/V5/V6] INFERIOR MYOCARDIAL INFARCTION , PROBABLY OLD [40+ ms Q WAVE AND/OR ST/T ABNORMALITY IN II/aVF] Compared to ECG 11/27/2023 22:41:48 Incomplete right bundle-branch block now present Myocardial infarct finding still present Electronically Signed On 11-28-2023 14:46:39 CDT by Alcon Mandujano M.D. [id number]
[2023-11-27 23:46] VITALS: BP 139/86; PULSE 92; RESP 18; O2SAT 96
[2023-11-27 23:53] LABS: Troponin(5th) Baseline < 6 ng/L (0-15)
[2023-11-27 23:54] LABS: Lactic Sepsis W/Reflex 1.6 mmol/L (0.5-2.2)
[2023-11-27 23:55] LABS: C Reactive Protein 6.4 mg/L (0.0-4.9); Creatine Phosphokinase 108 U/L (39-308)
[2023-11-27 23:56] VITALS: TEMP 36.6
--- NOTE | 2023-11-27 23:57 | PC.NURSE ---
pt asked this nurse why am i here . pt was able to answer his name and was able to raise arms and legs on command
[2023-11-28 00:01] LABS: Amphetamines Screen Urine Negative (Negative); Barbiturates Screen Urine Negative (Negative); Benzodiazepines Screen Urine Negative (Negative); Cocaine Screen Urine Negative (Negative); Opiate Screen Urine Negative (Negative); PCP Screen Urine Negative (Negative); THC Screen Urine Negative (Negative)
[2023-11-28 00:09] LABS: Add Urine Microscopic? YES; Bacteria Urine 1+ /hpf; Bilirubin Urine Neg (Negative); Blood Urine Neg (Negative); Glucose Urine UA Norm (Normal); Ketones Urine 1+ (Negative); Leukocyte Esterase Urine Negative (Negative); Nitrate Urine Negative (Negative); Protein Urine 1+ (Negative); RBC Urine 0-4 /hpf (0-2); Squamous Epithelial Cell Urine 0-4 /hpf (0-5); Urine Appearance Clear (CLEAR); Urine Color Yellow (Yellow); Urobilinogen Urine 1 mg/dL (Negative); WBC Urine 0-4 /hpf (0-5); pH Urine 5 (5-7)
[2023-11-28 00:10] LABS: Erythrocyte Sedimentation Rate 21 mm/hr (0-10)
[2023-11-28] MEDS: lidocaine 1% 5 ML in potassium chloride premix 100 ML 52.5 ML IV (00:12)
--- NOTE | 2023-11-28 01:18 | PC.NURSE ---
Pt is able to speak with his family and was able to ambulate to the BS.
--- NOTE | 2023-11-28 01:26 | ECG_ITS ---
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 Measurements Intervals [place] Rate: 94 P: 32 [place]: 157 QRS: 124 QRSD: 96 T: 30 QT: 355 QTc: 446 Interpretive Statements SINUS RHYTHM INDETERMINATE AXIS PATTERN CONSISTENT WITH PULMONARY DISEASE Compared to ECG 11/27/2023 23:42:13 Incomplete right bundle-branch block no longer present Myocardial infarct finding no longer present Electronically Signed On 11-28-2023 14:50:35 CDT by Alcon Mandujano M.D. [id number]
[2023-11-28 01:31] VITALS: BP 148/89; PULSE 116; RESP 18; O2SAT 100
[2023-11-28 01:32] LABS: INR 0.96 (0.8-1.2); Partial Thromboplastin Time 26.4 SECONDS (23.9-36.7)
[2023-11-28 01:47] LABS: Troponin 5 2HR Delta 0.00001 ABS# (0-10)
[2023-11-28 01:53] VITALS: BP 128/87; PULSE 85; RESP 18; O2SAT 99
[2023-11-28 02:33] VITALS: BP 120/76; PULSE 89; RESP 18; O2SAT 92
[2023-11-28 03:07] VITALS: BP 110/94; PULSE 79; RESP 18
== END 2023-11-28 03:08 | disposition home or self-care (01) ==
PROVIDERS: Emergency Provider Emergency Medicine; PCP Nurse Practitioner Occupational Health
DX: R41.82 Altered mental status, unspecified (principal); R56.9 Unspecified convulsions; E87.6 Hypokalemia; Z79.85 Long-term (current) use of injectable non-insulin antidiabetic drugs; E11.9 Type 2 diabetes mellitus without complications; E78.5 Hyperlipidemia, unspecified; I10 Essential (primary) hypertension; F17.210 Nicotine dependence, cigarettes, uncomplicated
CPT/HCPCS: 36415; 36600; 70450; 70496; 70498; 80053; 80306; 80307; 81001; 81003; 82140; 82550; 82803; 83605; 84484; 85025; 85610; 85651; 85730; 86140; 93005; 96365; 96366; 96375; 99285; J2310; J3480; J7030; Q9967

== ENCOUNTER 2023-12-10 16:47 | Emergency (ER) | payer BC, MEDICAID, SELFPAY ==
[2023-12-10] VITALS (13 sets, daily range): BP systolic 90–121; BP diastolic 60–94; PULSE 86–120; RESP 10–20; TEMP 37.1; O2SAT 93–97; BMI 30.8
--- NOTE | 2023-12-10 16:45 | ECG_ITS ---
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 Measurements Intervals [place] Rate: 109 P: 49 [place]: 145 QRS: 168 QRSD: 97 T: 48 QT: 325 QTc: 439 Interpretive Statements SINUS TACHYCARDIA INDETERMINATE AXIS PATTERN CONSISTENT WITH PULMONARY DISEASE POSSIBLE RIGHT VENTRICULAR HYPERTROPHY [SOME/ALL OF: PROMINENT R IN V1, LATE TRANSITION, RAD, RODRIGO, SSS] PROBABLE INFERIOR MYOCARDIAL INFARCTION , PROBABLY OLD [35 ms Q WAVE IN II/aVF] Compared to ECG 11/28/2023 01:26:39 Atrial abnormality now present Myocardial infarct finding now present Sinus rhythm no longer present Electronically Signed On 12-11-2023 19:21:19 CDT by Ki Hayden M.D. [id number]
--- NOTE | 2023-12-10 17:17 | CTR_ITS ---
PROCEDURE INFORMATION: Exam: CT Head Without Contrast Exam date and time: 12/10/2023 5:53 PM Age: 48 years old Clinical indication: Syncope and collapse TECHNIQUE: Imaging protocol: Computed tomography of the head without contrast. Radiation optimization: All CT scans at this facility use at least one of these dose optimization techniques: automated exposure control; mA and/or kV adjustment per patient size (includes targeted exams where dose is matched to clinical indication); or iterative reconstruction. COMPARISON: CT angio headneck* [id number] 11/27/2023 10:49 PM RADIATION DOSE METRICS: Total DLP (mGy-cm): 1083.85 FINDINGS: Brain: No acute intracranial hemorrhage. No confluent lobar infarct. No mass effect. Cerebral ventricles: The ventricles and sulci are normal in size and shape for the patient's stated age. Paranasal sinuses: Visualized sinuses are unremarkable. No fluid levels. Mastoid air cells: Visualized mastoid air cells are well aerated. Bones: No acute calvarial fracture. Soft tissues: Visualized soft tissues are unremarkable. CT/CT head wo con* [id number] IMPRESSION: No acute intracranial abnormality. If symptoms persist, consider further evaluation with MRI, if MRI is clinically safe to obtain.
--- NOTE | 2023-12-10 17:17 | XRR_ITS ---
PROCEDURE INFORMATION: Exam: XR Chest Exam date and time: 12/10/2023 5:37 PM Age: 48 years old Clinical indication: Patient HX: Syncope; Cough TECHNIQUE: Imaging protocol: Radiologic exam of the chest. Views: 1 view. COMPARISON: None FINDINGS: Lungs: No focal lung consolidation. Pleural spaces: No pleural effusion. No pneumothorax. Heart/Mediastinum: No cardiomegaly. Bones/joints: No acute bony abnormality. XR/XR chest 1V portable [id number] IMPRESSION: No focal lung consolidation.
--- NOTE | 2023-12-10 17:19 | ED_ITS ---
HPI - Altered Mental Status 2 General: Chief Complaint: Altered Mental Status Stated Complaint: AMS Time Seen by Provider: 12/10/23 17:17 History of Present Illness: 48-year-old male patient comes in today for complaints of an episode of syncope. His mother and female significant other in the room states that he was in the living room and they had just given him some Pepto-Bismol because he had come back from the bathroom after an episode of diarrhea. After the patient was given some Pepto-Bismol he threw up and then passed out. Patient at this time is alert and oriented. Patient does not recall a short time prior to the passing out. Patient does remember having watery stools. Patient had been to the ER approximately 2 weeks ago for similar episode. Patient has a history of psoriasis, type 2 diabetes, high blood pressure, and high cholesterol. Review of Systems 2 General: Reports: 10 or more systems reviewed and unremarkable except in HPI and below PFSH ED 2 PFSH: Medical History Insomnia Type 2 diabetes mellitus Hyperlipidemia Hypertension Psoriasis Surgical History History of hemorrhoidectomy History of cholecystectomy Family History Father Myocardial infarction Cancer Colon or pancreas cancer Social History Smoking and tobacco/nicotine status: current every day tobacco/nicotine user cigarettes Packs smoked per day: 0.5 Years cigarettes smoked: 28 Alcohol intake: never Substance/Drug Use: never Physical Exam 2 Const: COMMON NORMALS: alert HENMT: COMMON NORMALS: normocephalic HEAD & SCALP: normocephalic Neck/C-Spine: COMMON NORMALS: full ROM Resp: COMMON NORMALS: normal respiratory effort and clear to auscultation bilaterally AUSCULTATION: clear to auscultation bilaterally Cardio: COMMON NORMALS: regular rate and regular rhythm RATE: regular rate RHYTHM: regular rhythm GI: COMMON NORMALS: Soft to palpation and non-tender PALPATION: Yes Soft to palpation : COMMON NORMALS: Yes no CVA tenderness BLADDER/KIDNEY EXAM: Yes no CVA tenderness Back/Pelvis: COMMON NORMALS: no CVA tenderness and thoracic and lumbar spine normal to inspection Extremity: COMMON NORMALS: full ROM Neuro: SENSORIUM/ORIENTATION: Yes alert Skin: COMMON NORMALS: turgor normal GENERAL SKIN EXAM: turgor normal Course 2 Vital Signs: Vital signs: Vital Signs Temperature 98.7 F 12/10/23 16:48 Pulse Rate 86 12/10/23 20:10 Respiratory Rate 18 12/10/23 20:10 Blood Pressure 120/71 12/10/23 20:10 Pulse Oximetry 97 12/10/23 20:10 Oxygen Delivery Me thod Room Air 12/10/23 16:58 MDM - Altered Mental Status Medical Decision Making 48-year-old male patient comes in today for an episode of syncope. On exam patient is alert and oriented. No focal neural deficits is noted. NIH scale is 0. No swelling is noted in extremities. Vital signs are normal. Patient has similar episode about 2 weeks ago that sounded more like a TIA. At that time patient was discovered to have low potassium. Differential diagnosis includes but not limited to seizure, vasovagal syncope, TIA, ACS, dehydration, hypokalemia, anxiety, malingering. Chest x-ray was normal. CT of the head was normal. CBC noted leukocytosis at 16,000 which seems to be chronic for patient. CMP noted an increase in patient's creatinine to 1.3 from 1.1, increased gap at 19.6, glucose 153, lactic 2.3. Believe patient might have some mild dehydration. Orthostatic pressures were positive with tachycardia and decrease in blood pressure from lying to sitting with recovery on standing. Patient was given 1 L of IV fluids with improvement of blood pressure and symptoms. Lactic acid most likely is increased for the dehydration and possible metformin use. Troponin was negative at 2 hours. EKG showed a sinus rhythm with indeterminate axis with no significant change at 2 hours. Urinalysis was unremarkable. Drug screen and EtOH were negative. Believe patient's symptoms today were more due to orthostatic hypotension secondary to dehydration. I believe patient is having these intermittent episodes of diarrhea which may be aggravating his symptoms. I recommended patient follow-up with primary care for further evaluation regarding medication changes or referral regarding his recurrent diarrhea. Lab Data 12/10/23 17:43 12/10/23 17:43 Radiology Impressions Chest X-Ray 12/10/23 17:17 IMPRESSION: No focal lung consolidation. Head CT 12/10/23 17:17 IMPRESSION: No acute intracranial abnormality. If symptoms persist, consider further evaluation with MRI, if MRI is clinically safe to obtain. Laboratory Results WBC 16.09 10^3/uL (3.29-11.43) H 12/10/23 17:43 RBC 5.31 10^6/uL (3.85-5.65) 12/10/23 17:43 Hgb 16.00 g/dL (11.27-16.99) 12/10/23 17:43 Hct 46.6 % (37-53) 12/10/23 17:43 MCV 87.8 fl (82-101) 12/10/23 17:43 MCH 30.1 pg (27-33) 12/10/23 17:43 MCHC 34.3 g/dL (30-55) 12/10/23 17:43 RDW 13.2 % (12.1-15.1) 12/10/23 17:43 Plt Count 318 10^3/cmm (157-399) 12/10/23 17:43 MPV 8.6 fL (7.4-10.4) 12/10/23 17:43 Neut % (Auto) 74.6 % 12/10/23 17:43 Lymph % (Auto) 16.0 % 12/10/23 17:43 [place] % (Auto) 4.2 % 12/10/23 17:43 Eos % (Auto) 4.4 % 12/10/23 17:43 Baso % (Auto) 0.4 % 12/10/23 17:43 Neut # (Auto) 12.00 10^3/uL (1.8-7.7) H 12/10/23 17:43 Lymph # (Auto) 2.6 10^3/uL (0.8-4.8) 12/10/23 17:43 [place] # (Auto) 0.7 10^3/uL (0.2-0.9) 12/10/23 17:43 Eos # (Auto) 0.7 10^3/uL (0.0-0.8) 12/10/23 17:43 Baso # (Auto) 0.1 10^3/uL (0.0-0.1) 12/10/23 17:43 Nucleated RBC % (auto) 0 % 12/10/23 17:43 Nucleated RBCs # 0.0 /100WBC 12/10/23 17:43 ESR 19 mm/hr (0-10) H 12/10/23 17:43 PT 13.10 SECONDS (12.1-14.9) 12/10/23 17:43 INR 0.96 (0.8-1.2) 12/10/23 17:43 APTT 25.9 SECONDS (23.9-36.7) 12/10/23 17:43 Sodium 136 mmol/L (136-145) 12/10/23 17:43 Potassium 3.6 mmol/L (3.5-5.1) 12/10/23 17:43 Chloride 99 mmol/L (98-107) 12/10/23 17:43 Carbon Dioxide 21 mmol/L (22-29) L 12/10/23 17:43 Anion Gap 19.6 (5-19) H 12/10/23 17:43 BUN 25 mg/dL (6-20) H 12/10/23 17:43 Creatinine 1.3 mg/dL (0.7-1.2) H 12/10/23 17:43 GFR Calculation 59.2 mL/min (90-130) L 12/10/23 17:43 Glucose 143 mg/dL (65-115) H 12/10/23 17:43 Calculated Osmolality 289 mOsm/kg (285-295) 12/10/23 17:43 Lactic Acid 2.3 mmol/L (0.5-2.2) H 12/10/23 17:43 Calcium 9.4 mg/dL (8.5-10.5) 12/10/23 17:43 Magnesium 1.9 mg/dL (1.7-2.3) 12/10/23 17:43 Total Bilirubin 0.4 mg/dL (0.15-1.2) 12/10/23 17:43 AST 15 U/L (0-40) 12/10/23 17:43 ALT 21 U/L (0-41) 12/10/23 17:43 Alkaline Phosphatase 96 U/L (40-130) 12/10/23 17:43 Creatine Kinase 75 U/L (39-308) 12/10/23 17:43 Troponin T Baseline 9 ng/L (0-15) 12/10/23 17:43 Troponin T 120 Minute 8.61 ng/L (0-15) 12/10/23 19:27 Delta Troponin T -0.39 ABS# (0-10) L 12/10/23 19:27 C-Reactive Protein 4.4 mg/L (0.0-4.9) 12/10/23 17:43 Total Protein 7.7 g/dL (6.6-8.7) 12/10/23 17:43 Albumin 4.4 g/dL (3.5-5.2) 12/10/23 17:43 Globulin 3.3 g/dL (1.3-4.6) 12/10/23 17:43 Lipase 29 U/L (13-60) 12/10/23 17:43 Procalcitonin 0.10 ng/mL (0-0.5) 12/10/23 17:43 TSH 1.23 uIU/mL (0.27-4.20) 12/10/23 17:43 Urine Color Yellow (Yellow) 12/10/23 18:38 Urine Appearance Clear (CLEAR) 12/10/23 18:38 Urine pH 7 (5-7) 12/10/23 18:38 Ur Specific [place] 1.010 (1.005-1.030) 12/10/23 18:38 Urine Protein Neg (Negative) 12/10/23 18:38 Urine Glucose (UA) Norm (Normal) 12/10/23 18:38 Urine Ketones 1+ (Negative) H 12/10/23 18:38 Urine Blood Neg (Negative) 12/10/23 18:38 Urine Nitrate Negative (Negative) 12/10/23 18:38 Urine Bilirubin Neg (Negative) 12/10/23 18:38 Urine Urobilinogen Neg mg/dL (Negative) 12/10/23 18:38 Ur Leukocyte Esterase Negative (Negative) 12/10/23 18:38 Urine Opiates Screen Negative ng/mL (Negative) 12/10/23 18:38 Ur Barbiturates Screen Negative ng/mL (Negative) 12/10/23 18:38 Ur Phencyclidine Scrn Negative ng/mL (Negative) 12/10/23 18:38 Ur Amphetamines Screen Negative ng/mL (Negative) 12/10/23 18:38 U Benzodiazepines Scrn Negative ng/mL (Negative) 12/10/23 18:38 Urine Cocaine Screen Negative ng/mL (Negative) 12/10/23 18:38 U Marijuana (THC) Screen Negative ng/mL (Negative) 12/10/23 18:38 Ethyl Alcohol < 10 mg/dL (0-10) 12/10/23 17:43 All radiology interpretation(s) finalized by discharge Discharge Plan Discharge Patient Disposition: Home Clinical Impression: Orthostatic hypotension, Dehydration Diarrhea Qualifiers: Diarrhea type: unspecified type Qualified Code(s): R19.7 - Diarrhea, unspecified Condition: Stable Prescriptions: No Action metformin 500 mg tablet 500 mg PO BID telmisartan 80 mg tablet 80 mg PO DAILY rosuvastatin 10 mg tablet 10 mg PO DAILY hydrochlorothiazide 25 mg tablet 25 mg PO DAILY Trulicity 0.75 mg/0.5 mL pen injector 0.75 mg SUBCUT .q7days zolpidem [Ambien] 10 mg tablet 10 mg PO BEDTIME Qty: 30 3RF Protonix 40 mg tablet,delayed release (DR/EC) 40 mg PO BID 42 Days Qty: 84 1RF ondansetron 4 mg tablet,disintegrating 4 mg PO Q6H PRN (Reason: nausea and vomiting) Qty: 14 0RF rosuvastatin 10 mg tablet 10 mg PO DAILY trazodone 50 mg tablet 50 mg PO DAILY hydrochlorothiazide 25 mg tablet 25 mg PO DAILY hydroxyzine HCl 25 mg tablet 25 mg PO DAILY telmisartan 80 mg Tablet 80 mg PO DAILY metformin 500 mg tablet 500 mg PO BID Discharge Orders: Discharge ED (Routine); Ordered 12/10/23 Ordered By: Alejandro Robledo Referrals: Andressa Blackwell FNP [Primary Care Provider] - Discharge Diet: Usual diet Discharge Activity: Increase activity as tolerated Patient Instructions: Dehydration (ED) Activity Restrictions/Additional Instructions: Drink plenty of water and fluids. Drink an electrolyte solution such as Pedialyte, Gatorade, liquid IV to help maintain hydration. Follow-up with primary care and 3 days for recheck. Return to ER for fever greater than 100.4, blood in vomit or stool, or new concerns. Coding Level of Care Code ED Marketing Database Coordinator for Uriel Garza
[2023-12-10 17:49] LABS: Basophils # 0.1 10^3/uL (0.0-0.1); Basophils % 0.4 %; Eosinophils # 0.7 10^3/uL (0.0-0.8); Eosinophils % 4.4 %; Hematocrit 46.6 % (37-53); Lymphocytes # 2.6 10^3/uL (0.8-4.8); Mean Corpuscular HGB Conc 34.3 g/dL (30-55); Mean Corpuscular Hemoglobin 30.1 pg (27-33); Mean Corpuscular Volume 87.8 fl (82-101); Mean Platelet Volume 8.6 fL (7.4-10.4); Monocytes # 0.7 10^3/uL (0.2-0.9); Monocytes % 4.2 %; Neutrophils % 74.6 %; Nucleated Red Blood Cells % 0 %; Platelet Count 318 10^3/cmm (157-399); Red Blood Count 5.31 10^6/uL (3.85-5.65); Red Cell Distribution Width 13.2 % (12.1-15.1); White Blood Count 16.09 10^3/uL (3.29-11.43)
[2023-12-10 17:51] LABS: Erythrocyte Sedimentation Rate 19 mm/hr (0-10)
[2023-12-10 18:07] LABS: INR 0.96 (0.8-1.2); Partial Thromboplastin Time 25.9 SECONDS (23.9-36.7)
[2023-12-10 18:11] LABS: Lactic Sepsis W/Reflex 2.3 mmol/L (0.5-2.2); Troponin(5th) Baseline 9 ng/L (0-15)
[2023-12-10 18:22] LABS: Thyroid Stimulating Hormone 1.23 uIU/mL (0.27-4.20)
[2023-12-10 18:33] LABS: Alanine Aminotransferase 21 U/L (0-41); Albumin Level 4.4 g/dL (3.5-5.2); Alcohol Level < 10 mg/dL (0-10); Alkaline Phosphatase 96 U/L (40-130); Anion Gap 19.6 (5-19); Aspartate Amino Transferase 15 U/L (0-40); Blood Urea Nitrogen 25 mg/dL (6-20); C Reactive Protein 4.4 mg/L (0.0-4.9); Calcium 9.4 mg/dL (8.5-10.5); Carbon Dioxide 21 mmol/L (22-29); Chloride 99 mmol/L (98-107); Creatine Phosphokinase 75 U/L (39-308); Creatinine Clr Calc Pharmacy 74.9198; Globulin 3.3 g/dL (1.3-4.6); Glomerular Filtration Rate 59.2 mL/min (90-130); Glucose 143 mg/dL (65-115); Lipase 29 U/L (13-60); Magnesium 1.9 mg/dL (1.7-2.3); Osmolality Calculated 289 mOsm/kg (285-295); Potassium 3.6 mmol/L (3.5-5.1); Sodium 136 mmol/L (136-145); Total Bilirubin 0.4 mg/dL (0.15-1.2); Total Protein 7.7 g/dL (6.6-8.7)
[2023-12-10 18:43] LABS: Add Urine Microscopic? NO; Charge for UA Resulting for Rev
[2023-12-10] MEDS: sodium chloride 0.9% 1,000 ML 999 ML IV (18:47)
[2023-12-10 18:52] LABS: Bilirubin Urine Neg (Negative); Blood Urine Neg (Negative); Glucose Urine UA Norm (Normal); Ketones Urine 1+ (Negative); Leukocyte Esterase Urine Negative (Negative); Nitrate Urine Negative (Negative); Protein Urine Neg (Negative); Urine Appearance Clear (CLEAR); Urine Color Yellow (Yellow); Urobilinogen Urine Neg (Negative); pH Urine 7 (5-7)
[2023-12-10 18:57] LABS: Amphetamines Screen Urine Negative (Negative); Barbiturates Screen Urine Negative (Negative); Benzodiazepines Screen Urine Negative (Negative); Cocaine Screen Urine Negative (Negative); Opiate Screen Urine Negative (Negative); PCP Screen Urine Negative (Negative); THC Screen Urine Negative (Negative)
--- NOTE | 2023-12-10 18:57 | ECG_ITS ---
[facility] Test Date: 2023-12-10 Pat Name: Bernardo Nieto Department: Room: Gender: Male Market Research Coordinator: : 1975 Requested By: Alejandro Mayo Order Number: [id number] Avelar MD: Ki Hayden M.D. Measurements Intervals [place] Rate: 90 P: 42 [place]: 155 QRS: 108 QRSD: 97 T: 33 QT: 352 QTc: 432 Interpretive Statements SINUS RHYTHM INDETERMINATE AXIS Compared to ECG 12/10/2023 16:45:52 Sinus tachycardia no longer present Atrial abnormality no longer present Myocardial infarct finding no longer present Electronically Signed On 12-11-2023 19:29:10 CDT by Ki Hayden M.D. [id number]
[2023-12-10 19:35] LABS: Reflex Lactate Order REFLEX LACTIC ORDERD
[2023-12-10 19:49] LABS: Troponin 5 2HR 8.61 ng/L (0-15)
[2023-12-10 20:03] LABS: Troponin 5 2HR Delta -0.39 ABS# (0-10)
[2023-12-13 14:10] LABS: Lyme AB Screen <0.90 index
[2023-12-17 21:40] LABS: E. Chaffeensis AB IGG <1:64; E. Chaffeensis AB IGM <1:20
[2023-12-20 16:00] LABS: RMSF IGG NOT DETECTED; RMSF IGM NOT DETECTED
== END 2023-12-10 20:04 | disposition home or self-care (01) ==
PROVIDERS: Emergency Provider Nurse Practitioner Family; PCP Nurse Practitioner Occupational Health
DX: I95.1 Orthostatic hypotension (principal); E86.0 Dehydration; R19.7 Diarrhea, unspecified; Z79.85 Long-term (current) use of injectable non-insulin antidiabetic drugs; Z79.84 Long term (current) use of oral hypoglycemic drugs; E11.9 Type 2 diabetes mellitus without complications; E78.5 Hyperlipidemia, unspecified; I10 Essential (primary) hypertension; F17.210 Nicotine dependence, cigarettes, uncomplicated
CPT/HCPCS: 36415; 70450; 71045; 80053; 80306; 80307; 81003; 82550; 83605; 83690; 83735; 84145; 84443; 84484; 85025; 85610; 85651; 85730; 86140; 86618; 86666; 86757; 87040; 93005; 96360; 99285; J7030

== ENCOUNTER 2024-09-11 06:00 | Day surgery (SDC) | payer BC, MEDICAID, SELFPAY ==
[2024-09-11 06:13] VITALS: BP 137/83; PULSE 83; RESP 18; TEMP 36.1; O2SAT 97; BMI 34.0
[2024-09-11] MEDS: sodium chloride 0.9% 250 ML 30 ML IV (06:31)
[2024-09-11 06:35] LABS: Glucose Point of Care 133 mg/dL (70-110)
--- NOTE | 2024-09-11 06:38 | P.ANESASSM_ITS ---
Pre-Anesthetic Assessment Height/Weight: Height 1.7 m Weight 98.43 kg Temp Pulse Resp BP Pulse Ox O2 Del Method 97 F L 83 18 137/83 97 Room Air 09/11/24 06:13 09/11/24 06:13 09/11/24 06:13 09/11/24 06:13 09/11/24 06:13 09/11/24 06:13 Operation Date: 09/11/24 07:00 Proposed Procedures p EGD 18524 R12(Not Applicable) - Osvaldo Mcguire MD Familial anesthetic complications: None Was Beta Brenden taken within 24 hours: N/A Was Clonidine taken within 24 hours: N/A Last intake: Intake Last Liquid Date 09/10/24 Last Liquid Time 19:30 Last Solid Date 09/10/24 Last Solid Time 18:00 Social Tobacco and No alcohol .5 pack(s) per day 32 years pack years Exam alert, oriented x 3, clear to auscultation bilaterally and regular rate & rhythm Airway Submandibular: within normal limits Cervical ROM: within normal limits Dentition: full Comments: Comments: Several missing History/ROS No significant history except as noted and No significant complaints Pulmonary None reported CV/HEM Myocardial Infarction None reported Hepatic None reported GI Gastroesophageal Reflux Disease (Controlled with medication, no issues this morning) Metabolic Diabetes Mellitus, Hyperlipidemia and Morbid Obesity [facility] [place] None reported Neuropsych Possible stroke/seizure, couldn't talk/move, never diagnosed with stroke Anesthetic Plan ASA status: 3 Anesthesia: Anesthesia Evaluation, General and MAC Risk of > 500 ml blood loss (7ml/kg in children): No Medications/Allergies Home Medications ?Medication ?Instructions ?Recorded ?Confirmed ?Last Taken ?Type dulaglutide 0.75 mg/0.5 mL 0.75 mg SUBCUT .q7days 03/0809/05/24 08/28/24 History subcutaneous pen injector (Trulicity) hydrochlorothiazide 25 mg tablet 25 mg PO DAILY 09/05/24 09/10/24 History metformin 500 mg tablet 500 mg PO BID 04/05/2309/0509/10/24 History rosuvastatin 10 mg tablet 10 mg PO DAILY 04/05/2307/3109/10/24 History trazodone 50 mg tablet 50 mg PO DAILY 11/27/2307/3109/10/24 History calcium polycarbophil 625 mg 1,250 mg PO QID 08/30/24 09/05/24 09/10/24 History tablet (Fiber Therapy (ca polycarbophil)) lisinopril 20 mg tablet 20 mg PO DAILY 08/30/24 04/0 07/3109/10/24 History pantoprazole 40 mg tablet,delayed 40 mg PO BID 30 days #60 tabs 08/30/24 09/05/24 09/10/24 Rx release polyethylene glycol 3350 17 4 g PO DAILY 08/30/24/0 07/3109/10/24 History gram/dose oral powder (Miralax) sucralfate 100 mg/mL oral 10 ml PO BID 30 days #600 mL 08/30/24 09/05/24 09/10/24 Rx suspension dapagliflozin propanediol 5 mg 5 mg PO DAILY 09/05/24 09/05/24 09/10/24 History tablet (Farxiga) docusate sodium 100 mg capsule 100 mg PO DAILY 5 09/05/24 09/10/24 History ondansetron 8 mg disintegrating 8 mg PO Q6H PRN Nausea And Vomiting 09/05/24 09/05/24 09/10/24 History tablet telmisartan 80 mg tablet 80 mg PO DAILY 09/05/2407/3109/10/24 History Allergies Allergy/AdvReac Type Severity Reaction Status Date / Time No Known Allergies Allergy Verified 08/30/24 09:20 Current Medications Generic Name Dose Route Start Last Admin Trade Name Freq PRN Reason Stop Dose Admin Sodium Chloride 250 mls @ 30 mls/hr 09/11/24 06:30 09/11/24 06:31 Sodium Chloride 0.9% IV 30 mls/hr .[id number] ROMAN Administration PFSH Anesthesia Medical History Insomnia Type 2 diabetes mellitus Hyperlipidemia Hypertension Psoriasis Surgical History History of hemorrhoidectomy History of cholecystectomy Family History Father Myocardial infarction Cancer Colon or pancreas cancer Social History Smoking and tobacco/nicotine status: former use of tobacco/nicotine Alcohol intake: never Substance/Drug Use: never Data Anesthesia Cardiac Studies: No Data to Display
--- NOTE | 2024-09-11 07:06 | W.PM.OPSUD ---
Surgery/Procedure H&P Update DATE OF PROCEDURE: September 11, 2024 DATE H&P PERFORMED: 08/30/24 H&P UPDATE INFORMATION: I have reviewed H&P completed within last 30 days, I have examined patient prior to procedure and No changes to prior documentation PLANNED PROCEDURE: Operation Date: 09/11/24 07:00 Proposed Procedures p EGD [id number] R12(Not Applicable) - Osvaldo Mcguire MD
[2024-09-11 07:22] LABS: Blood Urea Nitrogen 26 mg/dL (6-20); Calcium 9.6 mg/dL (8.5-10.5); Carbon Dioxide 26 mmol/L (22-29); Chloride 99 mmol/L (98-107); Creatinine Clr Calc Pharmacy 72.1324; Glomerular Filtration Rate 54.1 mL/min (90-130); Glucose 131 mg/dL (65-115); Osmolality Calculated 293 mOsm/kg (285-295); Sodium 138 mmol/L (136-145)
[2024-09-11 07:50] VITALS: BP 114/75; PULSE 93; RESP 16; O2SAT 96
[2024-09-11 08:00] VITALS: BP 117/78; PULSE 88; RESP 16; O2SAT 98
--- NOTE | 2024-09-11 08:20 | ANE.PACU2 ---
Inpatient post-anesthesia follow up: Airway intact: Yes Vital signs: Temperature 97 F Pulse Rate 88 Respiratory Rate 16 Blood Pressure 117/78 Pulse Oximetry 98 Oxygen Delivery Me thod Room Air Oxygen Flow Rate Fraction of Inspir ed Oxygen Hydration adequate: Yes Nausea and vomiting: No Pain level: 1 Mental status: Baseline
== END 2024-09-11 08:05 | disposition home or self-care (01) ==
PROVIDERS: Student in an Organized Health Care Education/Training Program; PCP Nurse Practitioner Occupational Health; Visit Provider Student in an Organized Health Care Education/Training Program
PROC: 0DJ08ZZ Inspection of Upper Intestinal Tract, Via Natural or Artificial Opening Endoscopic (ICD-10-PCS; principal; 2024-09-11 07:00)
DX: K29.50 Unspecified chronic gastritis without bleeding (principal); E11.9 Type 2 diabetes mellitus without complications; E78.5 Hyperlipidemia, unspecified; E66.01 Morbid (severe) obesity due to excess calories; Z68.34 Body mass index [BMI] 34.0-34.9, adult; I25.2 Old myocardial infarction; K21.9 Gastro-esophageal reflux disease without esophagitis; Z79.899 Other long term (current) drug therapy; Z79.85 Long-term (current) use of injectable non-insulin antidiabetic drugs; Z79.84 Long term (current) use of oral hypoglycemic drugs; L40.9 Psoriasis, unspecified; Z87.891 Personal history of nicotine dependence
CPT/HCPCS: 36416; 43239; 80048; 82962; 88305; 88342; J2371; J2704; J7050; J9999

== ENCOUNTER 2024-09-18 11:49 | Outpatient (CLI) | payer BC, MEDICAID, SELFPAY ==
[2024-09-18 12:11] LABS: Basophils # 0.1 10^3/uL (0.0-0.1); Eosinophils # 0.2 10^3/uL (0.0-0.8); Eosinophils % 1.4 %; Hematocrit 47.1 % (37-53); Lymphocytes % 31.7 %; Mean Corpuscular HGB Conc 34.2 g/dL (30-55); Mean Corpuscular Hemoglobin 30.4 pg (27-33); Mean Corpuscular Volume 88.9 fl (82-101); Mean Platelet Volume 8.4 fL (7.4-10.4); Monocytes # 0.5 10^3/uL (0.2-0.9); Monocytes % 4.1 %; Neutrophils # 7.72 10^3/uL (1.8-7.7); Neutrophils % 61.4 %; Nucleated Red Blood Cells % 0 %; Platelet Count 295 10^3/cmm (157-399); Red Cell Distribution Width 13.3 % (12.1-15.1); White Blood Count 12.55 10^3/uL (3.29-11.43)
[2024-09-18 12:36] LABS: Anion Gap 18.7 (5-19); Blood Urea Nitrogen 18 mg/dL (6-20); Calcium 9.4 mg/dL (8.5-10.5); Carbon Dioxide 24 mmol/L (22-29); Chloride 98 mmol/L (98-107); Glomerular Filtration Rate 64.6 mL/min (90-130); Glucose 102 mg/dL (65-115); Osmolality Calculated 286 mOsm/kg (285-295); Potassium 3.7 mmol/L (3.5-5.1); Sodium 137 mmol/L (136-145)
[2024-09-18 12:45] LABS: HIV 1 & 2 Antibody Non-Reactive (Non-Reactiv); HIV 1 & 2 Antigen Non-Reactive (Non-Reactiv)
[2024-09-18 12:56] LABS: Hepatitis A Antibody IgM Non-Reactive (Nonreactive); Hepatitis B Core AB, Total Non-Reactive (Nonreactive); Hepatitis B Surface AB 50.3 (11.5-1000); Hepatitis B Surface Antigen Non-Reactive (Nonreactive); Hepatitis C Virus Antibody Non-Reactive (Nonreactive)
== END 2024-09-18 11:50 | disposition home or self-care (01) ==
LOC: LAB 11:50
PROVIDERS: PCP Nurse Practitioner Occupational Health; Visit Provider Nurse Practitioner Family
DX: L40.0 Psoriasis vulgaris (principal)
CPT/HCPCS: 36415; 80048; 85025; 86480; 86705; 86706; 86709; 86803; 87340; 87806